=== PATIENT | female | born 1960 | race Hispanic/Latino ===

== ENCOUNTER 2017-08-23 04:58 | Emergency (ER) | payer OTHER, MEDICARE ==
[~2017-08-23 04:58] MED LIST: LISI-617 PO; LOVA20TA3 PO; SERT100T12 PO; TRAM50TA4 PO
[2017-08-23] MEDS ORDERED: ONDANSETRON ODT 4 MG TAB ONE (05:10)
[2017-08-23 05:43] LABS: CREATININE 0.6 mg/dL (0.5-1.5); POTASSIUM 3.8 mmol/L (3.5-5.1)
[2017-08-23 05:48] LABS: ALBUMIN 3.9 g/dL (3.5-5.0); BILIRUBIN,TOTAL 0.3 mg/dL (0.2-1.0); TOTAL PROTEIN, SERUM 8.6 g/dL (6.0-8.3)
[2017-08-23 05:50] LABS: APPEARANCE,URINE Clear (CLEAR); BILIRUBIN,URINE Negative (NEGATIVE); COLOR,URINE Yellow (YELLOW); GLUCOSE, URINE (UA) Negative (NEGATIVE); KETONES,URINE Negative (NEGATIVE); LEUKOCYTE ESTERASE ,URINE Negative (NEGATIVE); NITRATE,URINE Negative (NEGATIVE); OCCULT BLOOD,URINE Negative (NEGATIVE); PH,URINE 6.5 (5.0-8.0); PROTEIN,URINE Negative (NEGATIVE); UROBILINOGEN,URINE 0.2 mg/dL (0.2-1.0)
[2017-08-23 06:07] LABS: BASOPHILS % (AUTO) 0.3 % (0.0-5.0); EOSINOPHILS % (AUTO) 0.6 % (0.0-8.0); HEMATOCRIT 39.5 % (36-48); LYMPHOCYTES % (AUTO) 8.8 % (21.0-51.0); MEAN CORPUSCULAR HEMOGLOBIN 27.9 pg (27.0-33.0); MEAN CORPUSCULAR HGB CONC 32.9 g/dL (32.0-36.0); MEAN CORPUSCULAR VOLUME 84.9 fL (79-99); MONOCYTES % (AUTO) 3.2 % (3.0-13.0); NEUTROPHILS % (AUTO) 87.1 % (40.0-77.0); PLATELET COUNT (AUTO) 228 K/uL (130-400); RED BLOOD CELL COUNT(AUTO) 4.65 MIL/uL (4.00-5.50); RED CELL DISTRIBUTION WIDTH 13.7 % (11.0-15.5); WHITE BLOOD COUNT (AUTO) 18.8 K/uL (4.8-10.8)
[2017-08-23] MEDS ORDERED: SODIUM CHLORIDE 0.9% 1000ML 1,000 ML IV ONE (06:29)
[2017-08-23] MEDS ORDERED: KETOROLAC TROMETHAMINE 30MG/ML ONE (09:17)
[2017-08-23] MEDS ORDERED: METHYLPREDNISOLONE SOD SUCC 125MG/2ML VIAL ONE (09:51)
== END 2017-08-23 10:40 | disposition home or self-care (01) ==
LOC: EDH 04:58
DX: J06.9 Acute upper respiratory infection, unspecified (principal); E86.9 Volume depletion, unspecified; E78.5 Hyperlipidemia, unspecified; I10 Essential (primary) hypertension; Z88.8 Allergy status to other drugs, medicaments and biological substances
CPT/HCPCS: 36415; 71020; 80053; 81003; 85025; 87804 ×2; 96361; 96374; 96375; 99285; J1885; J2930; J7030

== ENCOUNTER 2018-02-17 03:38 | Emergency (ER) | payer OTHER, MEDICARE ==
[2018-02-17] MEDS ORDERED: KETOROLAC TROMETHAMINE 60 MG/2 ML VIAL ONE (03:55)
[2018-02-17] MEDS ORDERED: DIAZEPAM 5 MG TABLET ONE (03:55)
[2018-02-17] MEDS ORDERED: HALOPERIDOL LACTATE 5 MG/ML VIAL ONE ×2 (04:34→04:36)
[2018-02-17 05:03] LABS: APPEARANCE,URINE Clear (CLEAR); BILIRUBIN,URINE Negative (NEGATIVE); COLOR,URINE Yellow (YELLOW); GLUCOSE, URINE (UA) Negative (NEGATIVE); KETONES,URINE Negative (NEGATIVE); LEUKOCYTE ESTERASE ,URINE Moderate (NEGATIVE); NITRATE,URINE Negative (NEGATIVE); OCCULT BLOOD,URINE Negative (NEGATIVE); PH,URINE 5.5 (5.0-8.0); PROTEIN,URINE Negative (NEGATIVE); UROBILINOGEN,URINE 0.2 mg/dL (0.2-1.0)
[2018-02-17 05:11] LABS: BACTERIA,URINE None Seen /HPF (None Seen); RBC,URINE 0-1 /HPF (0-1); SQUAMOUS EPITHELIAL CELL,UR Rare /HPF (0-2)
[2018-02-17] MEDS ORDERED: LORAZEPAM 2 MG/ML 1 ML VIAL ONE (05:13)
[2018-02-17] MEDS ORDERED: DiphenhydrAMINE HCL 50 MG/ML VIAL ONE (05:13)
== END 2018-02-17 06:27 | disposition home or self-care (01) ==
LOC: EDH 03:38
DX: M54.5 Low back pain (principal); I10 Essential (primary) hypertension; E78.5 Hyperlipidemia, unspecified; Z88.8 Allergy status to other drugs, medicaments and biological substances; Z90.710 Acquired absence of both cervix and uterus; Z98.890 Other specified postprocedural states
CPT/HCPCS: 81001; 93005; 96372 ×2; 96374; 96375; 99285; J1200; J1630 ×2; J1885; J2060

== ENCOUNTER 2018-07-02 05:17 | Emergency (ER) | payer OTHER, MEDICARE ==
[2018-07-02] MEDS ORDERED: LIDOCAINE 5% TOPICAL PATCH TP ONE (05:59)
[2018-07-02] MEDS ORDERED: DIAZEPAM 5 MG TABLET ONE (06:00)
[2018-07-02] MEDS ORDERED: KETOROLAC TROMETHAMINE 30MG/ML ONE (06:00)
[2018-07-02] MEDS ORDERED: ORPHENADRINE CITRATE 30 MG/ML ML ONE (07:20)
== END 2018-07-02 08:40 | disposition home or self-care (01) ==
LOC: EDH 05:17
DX: M62.838 Other muscle spasm (principal); M54.2 Cervicalgia; R51 Headache; I10 Essential (primary) hypertension; E78.5 Hyperlipidemia, unspecified; Z90.710 Acquired absence of both cervix and uterus; Z98.890 Other specified postprocedural states; Z88.8 Allergy status to other drugs, medicaments and biological substances
CPT/HCPCS: 96372 ×2; 99284; J1885; J2360

== ENCOUNTER 2021-12-05 05:47 | Emergency (ER) | payer OTHER, MEDICARE ==
[~2021-12-05] VITALS: Ht 162.6 cm; Wt 77.1 kg
[~2021-12-05 05:47] MED LIST changes: -LISI-617 PO; +LISI5TAB21 PO; +SERT-440 PO; -SERT100T12 PO
[2021-12-05] MEDS ORDERED: 0.9%NACL 1000ML 1,000 ML IV ONE (06:25)
[2021-12-05 06:29] VITALS: BP 142/70
[2021-12-05] MEDS ORDERED: FAMOTIDINE 20MG VIAL IV SCH (06:30)
[2021-12-05] MEDS ORDERED: ONDANSETRON 4MG INJ IVP SCH (06:30)
[2021-12-05] MEDS ORDERED: HYOSCYAMINE SULFATE 0.125 MG TAB.SUBL SL SCH (06:30)
[2021-12-05] MEDS ORDERED: DiphenhydrAMINE HCL 50 MG/ML VIAL IV SCH (06:30)
[2021-12-05] MEDS ORDERED: METOCLOPRAMIDE 10 MG/2 ML VIAL IVP SCH (06:30)
[2021-12-05] MEDS ORDERED: 0.9%NACL 1000ML 1,000 ML IV SCH (06:30)
[2021-12-05] MEDS ORDERED: PANTOPRAZOLE 40 MG/VIAL IVP SCH (06:30)
[2021-12-05] MEDS ORDERED: HYOSCYAMINE SULFATE 0.125 MG TAB.SUBL SL ONE (06:34)
[2021-12-05] MEDS ORDERED: PANTOPRAZOLE 40 MG/VIAL ONE (06:34)
[2021-12-05] MEDS ORDERED: METOCLOPRAMIDE 10 MG/2 ML VIAL ONE (06:34)
[2021-12-05] MEDS ORDERED: ONDANSETRON 4MG INJ ONE (06:34)
[2021-12-05] MEDS ORDERED: DiphenhydrAMINE HCL 50 MG/ML VIAL ONE (06:34)
[2021-12-05] MEDS ORDERED: FAMOTIDINE 20MG VIAL IV ONE (06:35)
[2021-12-05 06:36] LABS: BASOPHILS % (AUTO) 0.1 % (0.0-5.0); EOSINOPHILS % (AUTO) 0.2 % (0.0-8.0); LYMPHOCYTES % (AUTO) 3.3 % (21.0-51.0); MEAN CORPUSCULAR HEMOGLOBIN 28.2 pg (27.0-33.0); MEAN CORPUSCULAR HGB CONC 32.3 g/dL (32.0-36.0); MEAN CORPUSCULAR VOLUME 87.5 fL (79-99); MONOCYTES % (AUTO) 2.9 % (3.0-13.0); PLATELET COUNT (AUTO) 278 K/uL (130-400); RED BLOOD CELL COUNT(AUTO) 5.03 MIL/uL (4.00-5.50); RED CELL DISTRIBUTION WIDTH 12.9 % (11.0-15.5); WHITE BLOOD COUNT (AUTO) 16.4 K/uL (4.8-10.8)
[2021-12-05 06:53] LABS: BILIRUBIN,TOTAL 0.5 mg/dL (0.2-1.0); CREATININE 0.8 mg/dL (0.5-1.5); TOTAL PROTEIN, SERUM 9.4 g/dL (6.0-8.3)
[2021-12-05 07:19] LABS: APPEARANCE,URINE Clear (CLEAR); BILIRUBIN,URINE Negative (NEGATIVE); COLOR,URINE Yellow (YELLOW); GLUCOSE, URINE (UA) Negative (NEGATIVE); KETONES,URINE Negative (NEGATIVE); LEUKOCYTE ESTERASE ,URINE Trace (NEGATIVE); NITRATE,URINE Negative (NEGATIVE); OCCULT BLOOD,URINE Small (NEGATIVE); PH,URINE 5.5 (5.0-8.0); PROTEIN,URINE Negative (NEGATIVE); UROBILINOGEN,URINE 0.2 mg/dL (0.2-1.0)
[2021-12-05] MEDS ORDERED: IOHEXOL-350 75 ML VIAL IV ONE (07:22)
[2021-12-05 07:52] LABS: RBC,URINE 0-1 /HPF (0-1)
[2021-12-05 07:53] LABS: BACTERIA,URINE Few /HPF (None Seen)
[2021-12-05] MEDS ORDERED: HYOS0.124 SL (08:45)
[2021-12-05] MEDS ORDERED: ONDA4TAB10 PO (08:45)
== END 2021-12-05 08:59 | disposition home or self-care (01) ==
LOC: EDH 05:47
DX: K29.70 Gastritis, unspecified, without bleeding (principal); E86.9 Volume depletion, unspecified; R11.2 Nausea with vomiting, unspecified; R19.7 Diarrhea, unspecified; I10 Essential (primary) hypertension; Z79.899 Other long term (current) drug therapy
CPT/HCPCS: 36415; 74176; 80053; 81001; 83690; 84484; 85025; 93005; 96374; 96375; 99285; C9113; J1200; J2405; J2765; J3490; J7030; Q9967

== ENCOUNTER → 2024-05-31 | Outpatient (CLI) | payer OTHER, MEDICARE ==
[~2024-05-31] MED LIST changes: +HYOS0.124 SL; +ONDA-243 PO
== END | disposition home or self-care (01) ==
LOC: RAH 11:04
PROVIDERS: ATTEND Family Medicine
DX: R22.1 Localized swelling, mass and lump, neck (principal)
CPT/HCPCS: 76536

== ENCOUNTER → 2024-06-12 | Outpatient (CLI) | payer OTHER, MEDICARE ==
[~2024-06-12] MED LIST changes: +IOHEXOL 350 MG/ML 100ML INFUS..BTL IV ONE
== END | disposition home or self-care (01) ==
LOC: RAH 13:07
PROVIDERS: ATTEND Family Medicine
DX: R07.89 Other chest pain (principal); R22.1 Localized swelling, mass and lump, neck; M19.012 Primary osteoarthritis, left shoulder; M25.712 Osteophyte, left shoulder; Z90.49 Acquired absence of other specified parts of digestive tract
CPT/HCPCS: 71270; Q9967